=== PATIENT | female | born 1955 | race American Indian/Alaskan Native ===

== ENCOUNTER 2021-07-09 18:58 | Emergency (ER) | payer OTHER ==
[~2021-07-09 18:58] MED LIST: DEXTROSE 50% IN WATER (25GM) 50 ML VIAL IV ONE; EPINEPHrine 1 MG/10 ML SYRINGE ONE; SODIUM BICARB 8.4% 50 MEQ/50 ML SYRINGE IV ONE
--- NOTE | 2021-07-09 19:17 | Emergency Department Report ---
ED CPR HPI - General Chief Complaint: Cardiac Arrest/CPR Stated Complaint: CARDIAC ARREST Time Seen by Provider: 07/09/21 19:12 Source: EMS - History of Present Illness Initial Comments: Patient is 66 years old female with history of gastric cancer. Patient brought to the emergency room from home in a full cardiac arrest, CPR in progress. EMS stated that patient is hospice however family and not able to provide a written DNR. ACLS immediately started by EMS. Upon arrival to the ER, ACLS continued. Patient intubated by me using a glide scope. Large amount of blood aspirated. I visualized the tube passing through the vocal cords. Good breath sound on both side. IV access obtained and patient received epinephrine, sodium bicarb and dextrose. Patient also received 2 mg of epi by EMS. She also see received calcium chloride. While we are resuscitating the patient call came from her hospice administration Mr. Colt Douglas from [facility] hospice care stating that the patient is DNR. I immediately stop CPR. This is happened around 7: 08 PM. Patient pronounced at 7:19 PM. Complaint: found unresponsive -: unknown Place: home Bystander CPR Performed: No Initial Findings in the Field: unresponsive, systole, PEA ROSC in the Field: No Associated Injuries: No Treatments Prior to Arrival: BMV, chest compressions, epinephrine mgs # ED Review of Systems ROS: Stated complaint: CARDIAC ARREST Other details as noted in HPI Comment: Unobtainable due to pts medical conditions ED Physical Exam - General General appearance: other (CPR in progress.) - Head Head exam: Present: atraumatic - Eye Pupils: Present: other (4 mm fixed and dilated.) - ENT ENT exam: Present: mucous membranes dry - Respiratory Respiratory exam: Present: other (No spontaneous breathing.) - Cardiovascular Cardiovascular Exam: Present: other (No spontaneous heart tone.) - GI/Abdominal GI/Abdominal exam: Present: soft. Absent: distended - Neurological Exam Neurological exam: Present: other (CPR in progress.) - Skin Skin exam: Present: warm Critical Care Time: Yes Critical care time in (mins) excluding proc time.: 30 Critical care attestation.: If time is entered above; I have spent that time in minutes in the direct care of this critically ill patient, excluding procedure time. ED Disposition Clinical Impression: Cardiopulmonary arrest Disposition: 20 Is pt being admited?: No Condition: Stable
== END 2021-07-09 21:15 ==
LOC: ED 18:58
DX: I46.9 Cardiac arrest, cause unspecified (principal)
CPT/HCPCS: 92950; 99285; J0171